=== PATIENT | female | born 1950 | race Caucasian/White ===

== ENCOUNTER 2017-04-26 19:01 | Emergency (ER) | payer SELFPAY ==
[~2017-04-26] VITALS: Ht 157.5 cm; Wt 69.0 kg
[2017-04-26] MEDS ORDERED: ASPI-1159 PO (19:06)
[2017-04-26] MEDS ORDERED: INSU100V3 SUBCUT (19:06)
[2017-04-27] MEDS ORDERED: ACETAMINOPHEN 500MG TABLET PO ONE (01:00)
[2017-04-27 05:40] VITALS: BP 130/69
== END 2017-04-27 05:45 | disposition home or self-care (01) ==
LOC: ER 20:09
DX: M54.5 Low back pain (principal); M54.2 Cervicalgia; R51 Headache; I10 Essential (primary) hypertension; E11.9 Type 2 diabetes mellitus without complications; M25.552 Pain in left hip
CPT/HCPCS: 70450; 72100; 72125; 73522; 99284; Z7610